=== PATIENT | female | born 2005 | race Caucasian/White ===

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

== ENCOUNTER 2024-02-13 11:43 | Emergency (ER) | payer OTHER ==
[~2024-02-13] VITALS: Ht 177.8 cm; Wt 130.6 kg
[2024-02-13 11:58] VITALS: BP 157/95
[2024-02-13] MEDS ORDERED: OLMESARTAN MEDOX5 MG PO (12:00)
[2024-02-13] MEDS ORDERED: OMEP20ER PO (12:00)
[2024-02-13] MEDS ORDERED: HYDR1TAB94 PO (13:11)
[2024-02-13] MEDS ORDERED: AMOCLA875 PO (13:11)
== END 2024-02-13 13:34 | disposition home or self-care (01) ==
LOC: ER 11:43
DX: K02.9 Dental caries, unspecified (principal); Z79.899 Other long term (current) drug therapy
CPT/HCPCS: 99282

== ENCOUNTER 2024-06-05 09:00 | Day surgery (SDC) | payer OTHER ==
[2024-06-05] VITALS (12 sets, daily range): BP systolic 94–151; BP diastolic 62–95
[~2024-06-05] VITALS: Ht 177.8 cm; Wt 121.1 kg
[~2024-06-05 09:00] MED LIST changes: +AMOCLA875 PO; +CefOXitin Sodium 2,000 MG in NS 50 ML IV SCH; +HYDR1TAB94 PO; +Indocyanine Green 25 MG Vial IV SCH; +Lactated Ringer's 1,000 ML IV SCH; +OLMESARTAN MEDOX5 MG PO; +OMEP20ER PO
[2024-06-05] MEDS ORDERED: HYDR1TAB94 PO (09:48)
[2024-06-05] MEDS ORDERED: Midazolam HCl 1MG / ML 2ML Vial IV SCH (11:35)
[2024-06-05] MEDS ORDERED: Bupivacaine 0.5% HCl 5 MG/ML 30MLVIAL ONE ×2 (11:38→12:15)
[2024-06-05] MEDS ORDERED: FentaNYL Citrate 50 MCG/ML 5 ML Injection ONE (11:41)
[2024-06-05] MEDS ORDERED: Ondansetron HCl 2 MG / ML 2ML Vial ONE ×2 (11:42→13:45)
[2024-06-05] MEDS ORDERED: Dexamethasone Sod Phos 10 MG/ML 1ML VIAL ONE (11:42)
[2024-06-05] MEDS ORDERED: Rocuronium Bromide 10 MG/ML 5ML Injection IV ONE ×2 (11:42→12:23)
[2024-06-05] MEDS ORDERED: propofoL 20 ML IV ONE ×2 (11:43→13:19)
[2024-06-05] MEDS ORDERED: ePHEDrine Sulfate 50 MG/ML 1ML Injection ONE (12:36)
[2024-06-05] MEDS ORDERED: Sugammadex Sodium 200 MG/2ML SDV (100 MG/ML) ONE (13:02)
[2024-06-05] MEDS ORDERED: Ketorolac Tromethamine 30mg Vial ONE (13:23)
[2024-06-05] MEDS ORDERED: HYDROmorphone HCl/Pf 1MG SYR ONE (13:39)
[2024-06-05] MEDS ORDERED: OxyCODONE 5 mg/Acetamin 325 mg TABLET PO PRN (13:40)
--- NOTE | 2024-06-05 14:37 | NUR ---
Dressing to procedure site clean, dry, intact with no visible drainage, swelling, erythema or bruising noted. Discharge instructions reviewed with patient. Patient verbalizes understanding. Copy given to patient to take home. PT TOLERATING EATING AND DRINKING. PT STABLE FOR DISCHARGE HOME AND HAS ASSIGNED RIDE WITH GRANDMA.
--- NOTE | 2024-06-05 15:30 | NUR ---
DISCHARGE HOME WITH GRANDMOTHER. DC VIA WHEELCHAIR.
== END 2024-06-05 15:22 | disposition home or self-care (01) ==
LOC: ORSCMMR 09:00 → ORD 11:00 → ORSCMMR 11:00
PROVIDERS: Surgery
PROC: BF031ZZ Plain Radiography of Gallbladder and Bile Ducts using Low Osmolar Contrast (ICD-10-PCS; principal; 2024-06-05 11:00)
PROC: 0FT44ZZ Resection of Gallbladder, Percutaneous Endoscopic Approach (ICD-10-PCS; principal; 2024-06-05 11:00)
DX: K80.10 Calculus of gallbladder with chronic cholecystitis without obstruction (principal); I10 Essential (primary) hypertension; F90.9 Attention-deficit hyperactivity disorder, unspecified type; K21.9 Gastro-esophageal reflux disease without esophagitis; E66.01 Morbid (severe) obesity due to excess calories; Z68.38 Body mass index [BMI] 38.0-38.9, adult; Z79.899 Other long term (current) drug therapy
CPT/HCPCS: 84703; 88304; A9270; J0694; J1100; J1170; J1885; J2250; J2405; J2704; J3010; J7120

== ENCOUNTER 2024-07-12 12:17 | Day surgery (SDC) | payer OTHER ==
[~2024-07-12] VITALS: Ht 175.3 cm; Wt 122.4 kg
[~2024-07-12 12:17] MED LIST changes: -CefOXitin Sodium 2,000 MG in NS 50 ML IV SCH; -Indocyanine Green 25 MG Vial IV SCH; +Lactated Ringer's 1,000 ML IV ONE; -Lactated Ringer's 1,000 ML IV SCH
[2024-07-12] MEDS ORDERED: Lactated Ringer's 1,000 ML IV ONE ×2 (13:39→17:16)
[2024-07-12] MEDS ORDERED: propofoL 20 ML IV ONE ×2 (13:40→14:26)
[2024-07-12] MEDS ORDERED: CeFAZolin Sodium 3,000 MG in NS 100 ML IV SCH (13:50)
[2024-07-12] MEDS ORDERED: Ropivacaine 0.5% HCL/PF 5 MG/ML 30ML Vial ONE (14:08)
[2024-07-12] MEDS ORDERED: Lidocaine HCl 2% 10 ML SDA ONE (14:08)
[2024-07-12] MEDS ORDERED: Midazolam HCl 1MG / ML 2ML Vial ONE (14:23)
[2024-07-12] MEDS ORDERED: FentaNYL Citrate 50 MCG/ML 2 ML Injection ONE ×3 (14:31→17:32)
[2024-07-12] MEDS ORDERED: ePHEDrine Sulfate 50 MG/ML 1ML Injection ONE (15:09)
[2024-07-12] MEDS ORDERED: Metoclopramide HCl 5MG / ML 2ML Vial ONE ×2 (16:34→17:52)
[2024-07-12] MEDS ORDERED: Dexamethasone Sod Phos 10 MG/ML 1ML VIAL ONE (16:34)
[2024-07-12] MEDS ORDERED: Ondansetron HCl 2 MG / ML 2ML Vial ONE ×2 (16:34→17:32)
[2024-07-12] MEDS ORDERED: Atropine Sulfate 0.4 MG/1 ML Vial ONE (16:53)
[2024-07-12 18:05] VITALS: BP 115/76
--- NOTE | 2024-07-12 18:23 | NUR ---
07/12/24 182 Doretha Sosa PT RECEIVED 25MCG OF FENTANYL VIA IV, PUSHED SLOWLY. PT ABLE TO TOLERATE SNACK AND FLUIDS JUST FINE. PT UP TO RECLINER, GRANDMA AT SIDE OF RECLINER. PT PLEASANT AND COOPERATIVE WITH CARE PROVIDED. PT AT HER ACCEPTABLE LEVEL OF PAIN BEFORE LEAVING THE FACILITY. VSS. PT ASSISTED TO PRIVATE CAR. PT COLLECTED ALL PERSONAL BELONGINGS, PANDA BEAR, CLOTHES AND BLACK BOOTS.
== END 2024-07-12 18:22 | disposition home or self-care (01) ==
LOC: ORSCSDS 12:17
PROVIDERS: Podiatrist Foot & Ankle Surgery
PROC: 0QSR04Z Reposition Left Toe Phalanx with Internal Fixation Device, Open Approach (ICD-10-PCS; principal; 2024-07-12 13:45)
PROC: 0SGN04Z Fusion of Left Metatarsal-Phalangeal Joint with Internal Fixation Device, Open Approach (ICD-10-PCS; principal; 2024-07-12 13:45)
DX: M20.12 Hallux valgus (acquired), left foot (principal); I10 Essential (primary) hypertension; E66.9 Obesity, unspecified; Z68.39 Body mass index [BMI] 39.0-39.9, adult; Z79.899 Other long term (current) drug therapy
CPT/HCPCS: C1713; J0461; J0690; J1100; J2001; J2003; J2250; J2405; J2704; J2765; J2795; J3010; J7120

== ENCOUNTER 2024-08-18 14:36 | Emergency (ER) | payer OTHER ==
[~2024-08-18] VITALS: Ht 175.3 cm; Wt 117.9 kg
[~2024-08-18 14:36] MED LIST changes: -Lactated Ringer's 1,000 ML IV ONE
[2024-08-18 14:42] VITALS: BP 138/70
[2024-08-18 15:46] LABS: BASOPHILS ABSOLUTE AUTO 0.04 K/mm3 (0.00-0.23); BASOPHILS PERCENT AUTO 0 % (0-2); EOSINOPHILS ABSOLUTE AUTO 0.06 K/mm3 (0.00-0.68); EOSINOPHILS PERCENT AUTO 1 % (0-6); Hematocrit 37.1 % (33.0-51.0); Hemoglobin 12.2 g/dL (11.5-16.0); IMMATURE GRAN ABSOLUTE AUTO 0.05 K/mm3 (0.00-0.10); IMMATURE GRAN PERCENT AUTO 1 % (0-1); LYMPHOCYTES ABSOLUTE AUTO 2.91 K/mm3 (0.84-5.20); LYMPHOCYTES PERCENT AUTO 27 % (21-46); MONOCYTES PERCENT AUTO 6 % (4-13); Mean Corpuscular HGB 28.4 pg (26.0-34.0); Mean Corpuscular HGB Conc 32.9 g/dL (31.5-36.5); Mean Corpuscular Volume 87 fL (80-100); NEUTROPHILS ABSOLUTE AUTO 7.22 K/mm3 (1.96-9.15); NEUTROPHILS PERCENT AUTO 66 % (41-73); Platelet Count 384 K/mm3 (150-400); RDW Coefficient Variation 13.5 % (11.7-14.2); RDW Standard Deviation 42.9 fL (35.1-46.3); Red Blood Cell Count 4.29 M/mm3 (3.80-5.20); White Blood Cell Count 10.88 K/mm3 (4.00-11.30)
[2024-08-18 16:04] LABS: Bun/Creatinine Ratio 13.4 (12.0-20.0); C-REACTIVE PROTEIN, EXT RANGE 1.31 mg/dL (0.000-0.300); Calcium, Blood 9.3 mg/dL (8.5-10.1); Creatinine, Blood 0.6 mg/dL (0.40-1.00); Potassium, Blood 3.9 mmol/L (3.5-5.5)
[2024-08-18] MEDS ORDERED: AMOCLA875 PO (16:19)
[2024-08-18] MEDS ORDERED: Amoxicillin/Clavulanate K 875 MG Tab PO ONE (16:20)
[2024-08-18] MEDS ORDERED: Ketorolac Tromethamine 15mg Vial IV ONE (16:20)
== END 2024-08-18 16:37 | disposition home or self-care (01) ==
LOC: ER 14:36
PROVIDERS: Emergency Medicine
DX: L03.116 Cellulitis of left lower limb (principal); Z79.899 Other long term (current) drug therapy
CPT/HCPCS: 73620; 80048; 85025; 86140; 96374; 99284-25; A9270; J1885

== ENCOUNTER 2024-12-19 13:04 | Emergency (ER) | payer OTHER ==
[~2024-12-19] VITALS: Ht 177.8 cm; Wt 127.0 kg
[2024-12-19 13:18] VITALS: BP 165/99
[2024-12-19 14:17] LABS: Influenza A, PCR NEGATIVE (NEGATIVE); Influenza B, PCR NEGATIVE (NEGATIVE); Resp Syncytial Virus, PCR NEGATIVE (NEGATIVE); SARS-Cov-2 (COVID-19) PCR, MMC NEGATIVE (NEGATIVE)
== END 2024-12-19 15:03 | disposition home or self-care (01) ==
LOC: ER 13:04
PROVIDERS: Student in an Organized Health Care Education/Training Program
DX: S93.401A Sprain of unspecified ligament of right ankle, initial encounter (principal); R05.2 Subacute cough; W01.0XXA Fall on same level from slipping, tripping and stumbling without subsequent striking against object, initial encounter
CPT/HCPCS: 0241U; 71046; 73610; 99283-25

== ENCOUNTER 2025-01-04 09:44 | Emergency (ER) | payer OTHER ==
[~2025-01-04] VITALS: Ht 175.3 cm; Wt 122.5 kg
[2025-01-04 10:21] VITALS: BP 149/93
[2025-01-04] MEDS ORDERED: Ondansetron 4 MG SoluTab SL ONE (10:25)
[2025-01-04] MEDS ORDERED: ONDA4ODT MM (11:10)
== END 2025-01-04 11:10 | disposition home or self-care (01) ==
LOC: ER 09:44
DX: K52.9 Noninfective gastroenteritis and colitis, unspecified (principal); A05.9 Bacterial foodborne intoxication, unspecified; K21.9 Gastro-esophageal reflux disease without esophagitis; I10 Essential (primary) hypertension; Z79.899 Other long term (current) drug therapy
CPT/HCPCS: 99283; A9270